=== PATIENT | female | born 1965 | race Caucasian/White ===

== ENCOUNTER → 2019-02-20 07:08 | Day surgery (SDC) | payer OTHER ==
[~2019-02-20 07:08] MED LIST: Acetaminophen IV 1GM/100ML * 1,000 MG/100 ML VIAL IVPB ONE; Acetaminophen IV 1GM/100ML * 100 ML ONE; Buffered Lidocaine 1% SYRIN* 1 ML/SYRINGE INTRADERM ONE; Ketorolac INJ* 30 MG/ML 1 ML VIAL ONE; Lactated Ringers 1000 ML Bag* 1,000 ML IV SCH; Lidocaine 2% PF * 5 ML VIAL ONE; Naloxone* 0.4 MG/ML 1 ML VIAL IV PRN; Ondansetron INJ* 2 MG/ML VIAL IV PRN; Propofol* 10 MG/ML 20 ML BTL ONE; Sodium Citrate/Citric Acid* 15 ML UDC ONE; Sodium Citrate/Citric Acid* 15 ML UDC PO ONE; fentaNYL* 50 MCG/ML 2 ML VIAL (100 MCG VIAL) IV PRN; fentaNYL* 50 MCG/ML 2 ML VIAL (100 MCG VIAL) ONE
[2019-02-20 08:37] LABS: Hematocrit 42 % (35-47); Hemoglobin 14.1 g/dL (12.0-16.0); Mean Corpuscular HGB Conc 33 g/dL (31-36); Mean Corpuscular Hemoglobin 26 pg (27-31); Mean Corpuscular Volume 79 fL (80-97); Mean Platelet Volume 8.7 fL (7.4-10.4); Platelet Count 259 10^3/uL (150-450); Red Blood Count 5.33 10^6 /uL (3.70-4.87); Red Cell Distribution Width 15 % (10-15); White Blood Count 8.4 10^3/uL (3.5-10.8)
[2019-02-20 11:01] VITALS: BP 134/76
--- NOTE | 2019-02-20 13:34 | OP ---
DATE OF OPERATION: 02/20/19 - [facility] DATE OF : 63 SURGEON: Amarjit Montenegro MD. ANESTHESIOLOGIST: Dr. Somers. ANESTHESIA: General. PRE-OP DIAGNOSIS: Postmenopausal spotting. POST-OP DIAGNOSIS: Postmenopausal spotting. OPERATIVE PROCEDURE: Hysteroscopy, dilation and curettage. ESTIMATED BLOOD LOSS: Minimal. URINE OUTPUT: 100 cc. IV FLUIDS: 800 cc lactated Ringer's. MATERIALS TO LAB: Endometrial curetting. INDICATIONS: This patient is a 53-year-old 2, para 2, who initially presented to the office reporting post-menopausal spotting. Endometrial biopsy and pelvic ultrasound were unremarkable. An office hysteroscopy was suboptimal. The patient desired to proceed with OR evaluation, although she understood that there were no likely findings. She was extensively counseled and consent was signed. FINDINGS: Normal-appearing uterine cavity, with atrophic endometrium. It did appear to be somewhat hyperemic in some parts of it. No visible polyps or masses within the uterine cavity. COMPLICATIONS: None. DESCRIPTION OF PROCEDURE: The risks, benefits, and alternatives were described to the patient and informed consent was obtained. The patient was taken to the operating room with IV running where general anesthesia was induced and found to be adequate. The patient was prepped and draped in the normal sterile fashion in the high lithotomy position in [facility]. A timeout was performed. The bladder was emptied. A bivalve speculum was placed in the vagina and a single- tooth tenaculum was placed on the anterior cervix. The cervix was then gently dilated using Hanks dilators. At that time, a 6 mm MyoSure hysteroscope was advanced through the cervix and into the uterine cavity without difficulty. This was done with saline running managed by an [employer] fluid management system. The uterine cavity appeared to be normal other than being somewhat hyperemic. There were no visible abnormal masses or polyps. The hysteroscope was then removed. A curettage was then performed using a medium banjo and then a Kevorkian curette. The scant amount of curettings was collected on Telfa. The tenaculum was then removed from the cervix and there was good hemostasis present. The speculum was removed and the patient was returned to the supine position. The patient tolerated the procedure well. Sponge, lap, and needle counts were correct x2. [id number]/[facility] #: [id number] [facility]
== END | disposition home or self-care (01) ==
LOC: OR 07:08
PROVIDERS: ATTEND Obstetrics & Gynecology
DX: N95.0 Postmenopausal bleeding (principal); R73.03 Prediabetes; Z68.38 Body mass index [BMI] 38.0-38.9, adult; I10 Essential (primary) hypertension; E78.00 Pure hypercholesterolemia, unspecified; G47.33 Obstructive sleep apnea (adult) (pediatric); M19.90 Unspecified osteoarthritis, unspecified site
CPT/HCPCS: 36415; 85027; 88305; A9270-GY; J1885; J2704; J3010